=== PATIENT | female | born 1955 | race Asian ===

== ENCOUNTER 2017-06-13 13:30 | Emergency (ER) | payer MEDICAID ==
[~2017-06-13] VITALS: Ht 165.1 cm; Wt 54.4 kg
[2017-06-13 13:30] VITALS: BP_SYST 139
--- NOTE | 2017-06-13 13:30 | NUR ---
BROUGHT BACK TO BED #8 AND TRIAGED. REPORT GIVEN TO MY
--- NOTE | 2017-06-13 13:40 | NUR ---
61year old female presented to ED with complaints of bleeding from right side of head near taoism region; STATES SHE HAD PLASTIC SURGERY YESTERDAY at outpatient clinic, STILL HAVING OOZING OF BLOOD FROM surgical site; denies any pain at this time; was prescribed "pain killers" and last dose this morning; no regular home meds; awaiting for MD nader/herve
--- NOTE | 2017-06-13 13:45 | NUR ---
Dr. Cortes at bedside for assess/eval; family (Mayela, dtr) at bedside
[2017-06-13] MEDS ORDERED: LORazepam 2 MG/ML VIAL (FOR ER USE) IM ONE (14:15)
--- NOTE | 2017-06-13 14:27 | NUR ---
VSS 131/71 94 R18 98%O2sat; will admin Ativan as ordered; will continue to monitor
--- NOTE | 2017-06-13 14:35 | NUR ---
20g Rwrist PIV; good blood return noted; blood labs drawn and sent to lab
[2017-06-13 14:52] LABS: BASOPHILS # (AUTO) 0.1 K/uL (0.0-0.2); BASOPHILS % (AUTO) 1.3 % (0.0-2.0); EOSINOPHILS % (AUTO) 0.5 % (0.0-4.0); HEMOGLOBIN 11.6 g/dL (12.0-16.0); LYMPHOCYTES # (AUTO) 1.6 K/uL (1.0-5.5); LYMPHOCYTES % (AUTO) 17.1 % (20.5-51.5); MEAN CORPUSCULAR HEMOGLOBIN 31 pg (27-31); MEAN CORPUSCULAR HGB CONC 33 % (32-36); MEAN CORPUSCULAR VOLUME 92 fL (79.0-98.0); MONOCYTES # (AUTO) 0.5 K/uL (0.0-1.0); MONOCYTES % (AUTO) 5.6 % (1.7-9.3); NEUTROPHILS # (AUTO) 7.4 K/uL (1.8-7.7); NEUTROPHILS % (AUTO) 75.5 % (40.0-70.0); PLATELET COUNT (AUTO) 178 K/uL (130-430); RED BLOOD CELL COUNT(AUTO) 3.82 MIL/uL (4.2-6.2); RED CELL DISTRIBUTION WIDTH 12.5 % (9.0-15.0); WHITE BLOOD COUNT (AUTO) 9.6 K/uL (4.8-10.8)
--- NOTE | 2017-06-13 15:04 | NUR ---
Dr. Alfaro, the partner of Dr. Bridges, is coming in to see the patient. [facility] notified and Mónica hr administrator early childhood education instructor was also notified and agree with the plan for him to come in and provide consultation as long as no intervention is performed.
[2017-06-13 15:05] LABS: CALCIUM 8.7 mg/dL (8.4-11.0); CREATININE 0.65 mg/dL (0.55-1.30); POTASSIUM 3.1 mmol/L (3.5-5.1)
[2017-06-13 15:10] LABS: ALBUMIN 3.4 g/dL (3.4-4.8); TOTAL BILIRUBIN 0.5 mg/dL (0.0-1.0)
[2017-06-13] MEDS ORDERED: LIDOCAINE/EPI 2% 1:100000 20 ML VIAL INJ ONE (15:28)
--- NOTE | 2017-06-13 15:30 | NUR ---
Dr. Engle at bedside, discussing the case with Dr. Cortes.
--- NOTE | 2017-06-13 15:40 | NUR ---
Dr. Cortes revised the surgical wound with cautery, wound was closed with christiano and covered in bacitracin.
[2017-06-13 16:15] VITALS: BP_SYST 132
--- NOTE | 2017-06-13 16:15 | NUR ---
Patient/family given written and verbal discharge instructions and verbalizes understanding. ER MD discussed with patient/family the results and treatment provided. Patient in stable condition. ID arm band removed. IV catheter removed intact and dressing applied, no active bleeding. Rx of Tylenol given. Patient/family educated on pain management and to follow up with PMD within 2-3days. Pain Scale 1/10; tolerable and no further interventions required; pt and MD agreeable to discharge home. Opportunity for questions provided and answered. Medication side effect fact sheet provided.
== END 2017-06-13 16:15 | disposition home or self-care (01) ==
LOC: SED 13:30
DX: J95.830 Postprocedural hemorrhage of a respiratory system organ or structure following a respiratory system procedure (principal); I10 Essential (primary) hypertension
CPT/HCPCS: 36415; 80053; 85025; 96372; 99284; J2060